=== PATIENT | male | born 1955 | race Caucasian/White ===

== ENCOUNTER → 2017-01-15 | Outpatient (REF) | payer MEDICARE ==
[2017-01-15 11:40] LABS: MEAN CORPUSCULAR HEMOGLOBIN 29.8 pg (27.0-33.0); MEAN CORPUSCULAR HGB CONC 34.2 g/dl (32.0-36.5); MEAN CORPUSCULAR VOLUME 87.3 fl (80.0-96.0); RED CELL DISTRIBUTION WIDTH 13.4 % (11.5-14.5); WHITE BLOOD COUNT 6.9 K/mm3 (4.0-10.0)
[2017-01-15 11:54] LABS: ALBUMIN 3.9 GM/DL (3.2-5.2); ALBUMIN/GLOBULIN RATIO 1.34 (1.00-1.93); ALKALINE PHOSPHATASE 63 U/L (45-117); ALT/SGPT 37 U/L (12-78); ANION GAP 6 MEQ/L (8-16); AST/SGOT 17 U/L (15-37); BILIRUBIN,TOTAL 0.5 MG/DL (0.2-1.0); BLOOD UREA NITROGEN 22 MG/DL (7-18); CALCIUM LEVEL 8.8 MG/DL (8.8-10.2); CARBON DIOXIDE LEVEL 30 MEQ/L (21-32); CHLORIDE LEVEL 107 MEQ/L (98-107); CHOLESTEROL LEVEL 143 MG/DL (<200); CREATININE FOR GFR 1.28 MG/DL (0.70-1.30); FREE T4 1.15 NG/DL (0.76-1.46); GLOMERULAR FILTRATION RATE > 60.0 (>49); GLUCOSE, FASTING 124 MG/DL (80-110); POTASSIUM SERUM 4.1 MEQ/L (3.5-5.1); SODIUM LEVEL 143 MEQ/L (136-145); TOTAL PROTEIN 6.8 GM/DL (6.4-8.2); TRIGLYCERIDES LEVEL 87 MG/DL (<150)
== END ==
LOC: M SFHCADAM 09:39
PROVIDERS: ATTEND Physician Assistant
DX: I80.13 Phlebitis and thrombophlebitis of femoral vein, bilateral (principal); R73.01 Impaired fasting glucose; I10 Essential (primary) hypertension; E78.5 Hyperlipidemia, unspecified; E55.9 Vitamin D deficiency, unspecified

== ENCOUNTER → 2017-02-14 | Outpatient (REF) | payer MEDICARE ==
[2017-02-14 19:41] LABS: CALCIUM LEVEL 9.1 MG/DL (8.8-10.2); CREATININE FOR GFR 1.84 MG/DL (0.70-1.30); GLOMERULAR FILTRATION RATE 39.6 (>49); POTASSIUM SERUM 4.4 MEQ/L (3.5-5.1)
== END ==
LOC: M SFHCADAM 10:13
PROVIDERS: ATTEND Physician Assistant
DX: R73.01 Impaired fasting glucose (principal); I10 Essential (primary) hypertension

== ENCOUNTER → 2017-02-26 | Outpatient (REF) | payer MEDICARE ==
[2017-02-26 12:46] LABS: ANION GAP 8 MEQ/L (8-16); BLOOD UREA NITROGEN 21 MG/DL (7-18); CALCIUM LEVEL 8.7 MG/DL (8.8-10.2); CARBON DIOXIDE LEVEL 26 MEQ/L (21-32); CHLORIDE LEVEL 106 MEQ/L (98-107); CREATININE FOR GFR 0.99 MG/DL (0.70-1.30); GLOMERULAR FILTRATION RATE > 60.0 (>49); GLUCOSE, FASTING 104 MG/DL (80-110); SODIUM LEVEL 140 MEQ/L (136-145)
== END ==
LOC: M SFHCADAM 09:00
PROVIDERS: ATTEND Physician Assistant
DX: N17.9 Acute kidney failure, unspecified (principal)

== ENCOUNTER → 2017-07-18 | Outpatient (REF) | payer MEDICARE | LOC: M SFHCADAM 10:14 | PROVIDERS: ATTEND Physician Assistant | DX: R73.01 Impaired fasting glucose (principal); I10 Essential (primary) hypertension; Z53.9 Procedure and treatment not carried out, unspecified reason ==

== ENCOUNTER → 2017-07-23 | Outpatient (CLI) | payer MEDICARE ==
--- NOTE | 2017-07-23 15:58 | REP ---
LEFT SHOULDER: Three views of the left shoulder are performed. There is no acute fracture or dislocation. There is mild narrowing of the acromioclavicular joint. The acromion is downward sloping. There is high riding of the humerus with decreased subacromial space, likely representing a rotator cuff tear. IMPRESSION: Degenerative changes acromioclavicular joint with downward sloping of the acromion. High riding humerus with decreased subacromial space, likely representing a rotator cuff tear. Further evaluation may be made with MRI. Signed by James Mercedes MD 07/23/2017 07:47 P
--- NOTE | 2017-07-23 16:01 | REP ---
LEFT HUMERUS: AP and lateral views of the left humerus are performed. There is no acute fracture or dislocation. There are degenerative changes at the acromioclavicular joint with decreased subacromial space suspicious for a rotator cuff tear. IMPRESSION: No fracture or dislocation. High riding humerus with decreased subacromial space suspicious for rotator cuff tear. Signed by James Mercedes MD 07/23/2017 07:47 P
== END ==
LOC: M ADAMS 15:04
PROVIDERS: ATTEND Physician Assistant
DX: M19.012 Primary osteoarthritis, left shoulder (principal); G89.29 Other chronic pain
CPT/HCPCS: 73030; 73060; G0463

== ENCOUNTER → 2018-07-03 | Outpatient (REF) | payer MEDICARE ==
[2018-07-03 13:45] LABS: ALBUMIN 4.3 GM/DL (3.2-5.2); ALBUMIN/GLOBULIN RATIO 1.65 (1.00-1.93); ALKALINE PHOSPHATASE 55 U/L (45-117); ALT/SGPT 34 U/L (12-78); ANION GAP 8 MEQ/L (8-16); AST/SGOT 17 U/L (7-37); BILIRUBIN,TOTAL 0.9 MG/DL (0.2-1.0); BLOOD UREA NITROGEN 22 MG/DL (7-18); CALCIUM LEVEL 8.9 MG/DL (8.8-10.2); CARBON DIOXIDE LEVEL 28 MEQ/L (21-32); CHLORIDE LEVEL 106 MEQ/L (98-107); CREATININE FOR GFR 1.26 MG/DL (0.70-1.30); GLOMERULAR FILTRATION RATE > 60.0 (>49); GLUCOSE, FASTING 98 MG/DL (70-100); POTASSIUM SERUM 4.3 MEQ/L (3.5-5.1); SODIUM LEVEL 142 MEQ/L (136-145); TOTAL PROTEIN 6.9 GM/DL (6.4-8.2)
[2018-07-03 14:08] LABS: ESTIMATED AVERAGE GLUCOSE 120 MG/DL (60-110); HEMOGLOBIN A1c 5.8 %
[2018-07-03 23:00] LABS: HEMATOCRIT 44.5 % (42.0-52.0); HEMOGLOBIN 14.9 g/dl (13.5-17.5); MEAN CORPUSCULAR HEMOGLOBIN 29.6 pg (27.0-33.0); MEAN CORPUSCULAR HGB CONC 33.5 g/dl (32.0-36.5); MEAN CORPUSCULAR VOLUME 88.3 fl (80.0-96.0); PLATELET COUNT, AUTOMATED 250 10^3/uL (150-450); RED BLOOD COUNT 5.04 10^6/uL (4.30-6.10); RED CELL DISTRIBUTION WIDTH 13.8 % (11.5-14.5); WHITE BLOOD COUNT 7.1 10^3/uL (4.0-10.0)
== END ==
LOC: M SFHCADAM 10:10
DX: I80.13 Phlebitis and thrombophlebitis of femoral vein, bilateral (principal); R73.01 Impaired fasting glucose; I10 Essential (primary) hypertension; E78.5 Hyperlipidemia, unspecified
CPT/HCPCS: 80053

== ENCOUNTER → 2019-01-07 | Outpatient (REF) | payer MEDICARE ==
[2019-01-07 15:35] LABS: ALT/SGPT 30 U/L (12-78); BILIRUBIN,TOTAL 0.9 MG/DL (0.2-1.0); BLOOD UREA NITROGEN 24 MG/DL (7-18); CALCIUM LEVEL 8.8 MG/DL (8.8-10.2); CARBON DIOXIDE LEVEL 30 MEQ/L (21-32); CHLORIDE LEVEL 107 MEQ/L (98-107); CHOLESTEROL LEVEL 140 MG/DL (<200); CREATININE FOR GFR 1.25 MG/DL (0.70-1.30); GLOMERULAR FILTRATION RATE > 60.0 (>49); GLUCOSE, FASTING 124 MG/DL (70-100); SODIUM LEVEL 141 MEQ/L (136-145); TRIGLYCERIDES LEVEL 105 MG/DL (<150)
[2019-01-07 15:36] LABS: ALBUMIN 3.9 GM/DL (3.2-5.2); CHOLESTEROL RISK RATIO 3.111 (<5); HDL CHOLESTEROL 45 MG/DL (>40); LDL CHOLESTEROL 74 MG/DL (<100); NON-HDL-C 95 MG/DL; TOTAL PROTEIN 6.6 GM/DL (6.4-8.2)
[2019-01-07 16:00] LABS: HEMATOCRIT 42.5 % (42.0-52.0); HEMOGLOBIN 14.3 g/dl (13.5-17.5); MEAN CORPUSCULAR HEMOGLOBIN 29.8 pg (27.0-33.0); MEAN CORPUSCULAR HGB CONC 33.6 g/dl (32.0-36.5); MEAN CORPUSCULAR VOLUME 88.5 fl (80.0-96.0); PLATELET COUNT, AUTOMATED 235 10^3/uL (150-450); WHITE BLOOD COUNT 7.3 10^3/uL (4.0-10.0)
== END ==
LOC: M SFHCADAM 11:33
PROVIDERS: ATTEND Physician Assistant
DX: E78.5 Hyperlipidemia, unspecified (principal); I80.13 Phlebitis and thrombophlebitis of femoral vein, bilateral; R73.01 Impaired fasting glucose

== ENCOUNTER → 2019-06-23 | Outpatient (REF) | payer MEDICARE ==
[2019-06-23 12:59] LABS: CALCIUM LEVEL 8.9 MG/DL (8.8-10.2); CREATININE FOR GFR 1.37 MG/DL (0.70-1.30); GLOMERULAR FILTRATION RATE 55.3 (>49); POTASSIUM SERUM 5.1 MEQ/L (3.5-5.1)
[2019-06-23 13:33] LABS: HEMOGLOBIN A1c 5.9 %
== END ==
LOC: M SFHCADAM 08:19
PROVIDERS: ATTEND Family Medicine
DX: R25.1 Tremor, unspecified (principal); I10 Essential (primary) hypertension

== ENCOUNTER → 2019-12-13 | Outpatient (REF) | payer MEDICARE ==
[2019-12-13 12:52] LABS: HEMATOCRIT 43.5 % (42.0-52.0); HEMOGLOBIN 14.6 g/dl (13.5-17.5); MEAN CORPUSCULAR HEMOGLOBIN 29.5 pg (27.0-33.0); MEAN CORPUSCULAR HGB CONC 33.6 g/dl (32.0-36.5); MEAN CORPUSCULAR VOLUME 87.9 fl (80.0-96.0); PLATELET COUNT, AUTOMATED 249 10^3/uL (150-450); RED BLOOD COUNT 4.95 10^6/uL (4.30-6.10); WHITE BLOOD COUNT 6.6 10^3/uL (4.0-10.0)
[2019-12-13 13:18] LABS: HEMOGLOBIN A1c 6.2 %
[2019-12-13 13:22] LABS: ALBUMIN 3.9 GM/DL (3.2-5.2); ALT/SGPT 11 U/L (12-78); BILIRUBIN,TOTAL 0.9 MG/DL (0.2-1.0); BLOOD UREA NITROGEN 20 MG/DL (7-18); CALCIUM LEVEL 8.9 MG/DL (8.8-10.2); CARBON DIOXIDE LEVEL 29 MEQ/L (21-32); CHLORIDE LEVEL 106 MEQ/L (98-107); CHOLESTEROL LEVEL 123 MG/DL (<200); CREATININE FOR GFR 1.21 MG/DL (0.70-1.30); GLOMERULAR FILTRATION RATE > 60.0 (>49); GLUCOSE, FASTING 108 MG/DL (70-100); HDL CHOLESTEROL 41 MG/DL (>40); LDL CHOLESTEROL 63 MG/DL (<100); NON-HDL-C 82 MG/DL; POTASSIUM SERUM 4.6 MEQ/L (3.5-5.1); SODIUM LEVEL 141 MEQ/L (136-145); TOTAL PROTEIN 6.8 GM/DL (6.4-8.2); TRIGLYCERIDES LEVEL 97 MG/DL (<150)
== END ==
LOC: M SFHCADAM 10:55
PROVIDERS: ATTEND Family Medicine
DX: Z12.5 Encounter for screening for malignant neoplasm of prostate (principal); I80.13 Phlebitis and thrombophlebitis of femoral vein, bilateral; I10 Essential (primary) hypertension; R73.01 Impaired fasting glucose; E78.5 Hyperlipidemia, unspecified
CPT/HCPCS: 80053; 80061; 83036; 85027; G0103

== ENCOUNTER → 2019-12-23 | Outpatient (REF) | payer MEDICARE ==
[2019-12-25 14:07] LABS: PSA % FREE 20.8 % (.); PSA FREE 1.91 ng/mL; PSA TOTAL 9.2 ng/mL (0.0-4.0)
== END ==
LOC: M LABSMT 15:33
PROVIDERS: ATTEND Urology
DX: R97.20 Elevated prostate specific antigen [PSA] (principal); Z79.899 Other long term (current) drug therapy
CPT/HCPCS: 51798; 81002; 84154; 87086; G0463

== ENCOUNTER → 2020-03-24 | Outpatient (REF) | payer MEDICARE ==
[2020-03-24 14:18] LABS: HEMATOCRIT 43.9 % (42.0-52.0); HEMOGLOBIN 14.5 g/dl (13.5-17.5); MEAN CORPUSCULAR HEMOGLOBIN 29.2 pg (27.0-33.0); MEAN CORPUSCULAR VOLUME 88.3 fl (80.0-96.0); PLATELET COUNT, AUTOMATED 244 10^3/uL (150-450); RED BLOOD COUNT 4.97 10^6/uL (4.30-6.10); WHITE BLOOD COUNT 6.9 10^3/uL (4.0-10.0)
[2020-03-25 21:07] LABS: PSA % FREE 22.3 % (.); PSA FREE 1.76 ng/mL; PSA TOTAL 7.9 ng/mL (0.0-4.0)
== END ==
LOC: M SFHCADAM 10:16
PROVIDERS: ATTEND Nurse Practitioner Women's Health
DX: I10 Essential (primary) hypertension (principal); E78.5 Hyperlipidemia, unspecified; R73.01 Impaired fasting glucose; I80.13 Phlebitis and thrombophlebitis of femoral vein, bilateral; R97.20 Elevated prostate specific antigen [PSA]

== ENCOUNTER → 2020-07-18 | Outpatient (CLI) | payer SELFPAY | LOC: M LABSMTC 13:01 | PROVIDERS: ATTEND Pediatrics | DX: Z20.828 Contact with and (suspected) exposure to other viral communicable diseases (principal) ==

== ENCOUNTER → 2021-01-09 | Outpatient (REF) | payer MEDICARE ==
[2021-01-09 18:25] LABS: HEMATOCRIT 44.7 % (42.0-52.0); HEMOGLOBIN 14.7 g/dl (13.5-17.5); MEAN CORPUSCULAR HEMOGLOBIN 29.6 pg (27.0-33.0); MEAN CORPUSCULAR HGB CONC 32.9 g/dl (32.0-36.5); MEAN CORPUSCULAR VOLUME 90.1 fl (80.0-96.0); PLATELET COUNT, AUTOMATED 252 10^3/uL (150-450); RED BLOOD COUNT 4.96 10^6/uL (4.30-6.10); WHITE BLOOD COUNT 7.9 10^3/uL (4.0-10.0)
[2021-01-09 18:42] LABS: ALT/SGPT 16 U/L (12-78); BILIRUBIN,TOTAL 0.9 MG/DL (0.2-1.0); BLOOD UREA NITROGEN 19 MG/DL (7-18); CALCIUM LEVEL 9.8 MG/DL (8.8-10.2); CARBON DIOXIDE LEVEL 30 MEQ/L (21-32); CHLORIDE LEVEL 106 MEQ/L (98-107); CHOLESTEROL LEVEL 135 MG/DL (<200); CHOLESTEROL RISK RATIO 3.552 (<5); CREATININE FOR GFR 1.13 MG/DL (0.70-1.30); FREE T4 1.08 NG/DL (0.76-1.46); GLOMERULAR FILTRATION RATE > 60.0 (>49); GLUCOSE, FASTING 90 MG/DL (70-100); HDL CHOLESTEROL 38 MG/DL (>40); LDL CHOLESTEROL 63 MG/DL (<100); NON-HDL-C 97 MG/DL; PROSTATIC SPECIFIC AG MONITOR 6.79 NG/ML (< 4.00); SODIUM LEVEL 139 MEQ/L (136-145); THYROID STIMULATING HORMONE 0.473 uIU/ML (0.358-3.740); TOTAL PROTEIN 6.9 GM/DL (6.4-8.2); TRIGLYCERIDES LEVEL 168 MG/DL (<150)
[2021-01-09 19:18] LABS: HEMOGLOBIN A1c 5.9 %
== END ==
LOC: M SFHCADAM 12:00
PROVIDERS: ATTEND Family Medicine
DX: I80.13 Phlebitis and thrombophlebitis of femoral vein, bilateral (principal); I10 Essential (primary) hypertension; E78.5 Hyperlipidemia, unspecified; R73.01 Impaired fasting glucose; R97.20 Elevated prostate specific antigen [PSA]; R41.3 Other amnesia
CPT/HCPCS: 80053; 80061; 83036; 84153; 84439; 84443; 85027; 99497; G0463

== ENCOUNTER → 2021-04-16 | Outpatient (CLI) | payer SELFPAY | LOC: M LABSMTC 11:21 | PROVIDERS: ATTEND Pediatrics | DX: Z20.822 Contact with and (suspected) exposure to COVID-19 (principal) ==

== ENCOUNTER → 2021-04-23 | Outpatient (REF) | payer MEDICARE | PROVIDERS: ATTEND Nurse Practitioner Women's Health | DX: R97.20 Elevated prostate specific antigen [PSA] (principal) ==

== ENCOUNTER → 2021-09-20 | Outpatient (REF) | payer MEDICARE, MEDICAID ==
[2021-09-20 14:56] LABS: HEMATOCRIT 42.2 % (42.0-52.0); HEMOGLOBIN 14.4 g/dl (13.5-17.5); MEAN CORPUSCULAR HEMOGLOBIN 29.9 pg (27.0-33.0); MEAN CORPUSCULAR HGB CONC 34.1 g/dl (32.0-36.5); MEAN CORPUSCULAR VOLUME 87.7 fl (80.0-96.0); PLATELET COUNT, AUTOMATED 274 10^3/uL (150-450); RED BLOOD COUNT 4.81 10^6/uL (4.30-6.10); WHITE BLOOD COUNT 8.3 10^3/uL (4.0-10.0)
[2021-09-20 15:15] LABS: ALBUMIN 3.8 GM/DL (3.2-5.2); ALT/SGPT 16 U/L (12-78); BILIRUBIN,TOTAL 0.7 MG/DL (0.2-1.0); BLOOD UREA NITROGEN 16 MG/DL (7-18); CALCIUM LEVEL 8.9 MG/DL (8.8-10.2); CARBON DIOXIDE LEVEL 29 MEQ/L (21-32); CHLORIDE LEVEL 105 MEQ/L (98-107); CHOLESTEROL LEVEL 125 MG/DL (<200); CHOLESTEROL RISK RATIO 3.048 (<5); CREATININE FOR GFR 1.04 MG/DL (0.70-1.30); GLOMERULAR FILTRATION RATE > 60.0 (>49); GLUCOSE, FASTING 104 MG/DL (70-100); HDL CHOLESTEROL 41 MG/DL (>40); LDL CHOLESTEROL 45 MG/DL (<100); NON-HDL-C 84 MG/DL; POTASSIUM SERUM 4.1 MEQ/L (3.5-5.1); PROSTATIC SPECIFIC AG MONITOR 5.31 NG/ML (< 4.00); SODIUM LEVEL 139 MEQ/L (136-145); TOTAL PROTEIN 6.7 GM/DL (6.4-8.2); TRIGLYCERIDES LEVEL 195 MG/DL (<150)
== END ==
LOC: M SFHCADAM 12:02
PROVIDERS: ATTEND Family Medicine
DX: I80.13 Phlebitis and thrombophlebitis of femoral vein, bilateral (principal); I10 Essential (primary) hypertension; E78.5 Hyperlipidemia, unspecified; R73.01 Impaired fasting glucose; R97.20 Elevated prostate specific antigen [PSA]
CPT/HCPCS: 80053; 80061; 83036; 84153; 85027; G0463

== ENCOUNTER → 2021-10-24 | Outpatient (REF) | payer MEDICARE, MEDICAID | PROVIDERS: ATTEND Nurse Practitioner Women's Health | DX: R97.20 Elevated prostate specific antigen [PSA] (principal) ==

== ENCOUNTER → 2022-03-28 | Outpatient (REF) | payer MEDICARE, MEDICAID ==
[2022-03-28 13:54] LABS: HEMATOCRIT 44.1 % (42.0-52.0); HEMOGLOBIN 14.9 g/dl (13.5-17.5); MEAN CORPUSCULAR HEMOGLOBIN 29.7 pg (27.0-33.0); MEAN CORPUSCULAR HGB CONC 33.8 g/dl (32.0-36.5); PLATELET COUNT, AUTOMATED 261 10^3/uL (150-450); RED BLOOD COUNT 5.01 10^6/uL (4.30-6.10); WHITE BLOOD COUNT 7.7 10^3/uL (4.0-10.0)
[2022-03-28 14:38] LABS: ALBUMIN 4.2 GM/DL (3.2-5.2); ALT/SGPT 19 U/L (12-78); BLOOD UREA NITROGEN 17 MG/DL (7-18); CALCIUM LEVEL 9.4 MG/DL (8.8-10.2); CARBON DIOXIDE LEVEL 29 MEQ/L (21-32); CHLORIDE LEVEL 105 MEQ/L (98-107); CHOLESTEROL LEVEL 140 MG/DL (<200); CHOLESTEROL RISK RATIO 3.684 (<5); CREATININE FOR GFR 1.19 MG/DL (0.70-1.30); FREE T4 1.16 NG/DL (0.76-1.46); GLOMERULAR FILTRATION RATE > 60.0 (>49); GLUCOSE, FASTING 104 MG/DL (70-100); HDL CHOLESTEROL 38 MG/DL (>40); LDL CHOLESTEROL 54 MG/DL (<100); NON-HDL-C 102 MG/DL; POTASSIUM SERUM 3.9 MEQ/L (3.5-5.1); SODIUM LEVEL 138 MEQ/L (136-145); THYROID STIMULATING HORMONE 0.591 uIU/ML (0.358-3.740); TOTAL PROTEIN 6.7 GM/DL (6.4-8.2); TRIGLYCERIDES LEVEL 238 MG/DL (<150)
[2022-03-28 14:42] LABS: HEMOGLOBIN A1c 6.1 %
== END ==
LOC: M SFHCADAM 10:54
PROVIDERS: ATTEND Family Medicine
DX: E78.5 Hyperlipidemia, unspecified (principal); I10 Essential (primary) hypertension; R73.01 Impaired fasting glucose; I80.13 Phlebitis and thrombophlebitis of femoral vein, bilateral

== ENCOUNTER → 2022-05-01 | Outpatient (REF) | payer MEDICARE, MEDICAID | PROVIDERS: ATTEND Nurse Practitioner Women's Health | DX: R97.20 Elevated prostate specific antigen [PSA] (principal) ==

== ENCOUNTER → 2022-10-30 | Outpatient (REF) | payer MEDICARE, MEDICAID | PROVIDERS: ATTEND Nurse Practitioner Women's Health | DX: R97.20 Elevated prostate specific antigen [PSA] (principal) ==

== ENCOUNTER → 2023-03-18 | Outpatient (REF) | payer MEDICARE, MEDICAID | LOC: M SFHCADAM 15:26 | PROVIDERS: ATTEND Physician Assistant | DX: R60.0 Localized edema (principal); I87.2 Venous insufficiency (chronic) (peripheral); I10 Essential (primary) hypertension; E78.5 Hyperlipidemia, unspecified; R73.01 Impaired fasting glucose; E55.9 Vitamin D deficiency, unspecified ==

== ENCOUNTER → 2023-03-19 | Outpatient (REF) | payer MEDICARE, MEDICAID ==
[2023-03-19 09:55] LABS: FREE T4 1.13 NG/DL (0.89-1.76); THYROID STIMULATING HORMONE 0.727 uIU/ML (0.55-4.78); THYROXINE (T4) 8.2 UG/DL (4.5-10.9)
[2023-03-19 09:56] LABS: ALBUMIN 3.8 G/DL (3.2-5.2); ALKALINE PHOSPHATASE 64 U/L (46-116); ALT/SGPT 25 U/L (7.0-40); AST/SGOT 19 U/L (<34); BLOOD UREA NITROGEN 15 MG/DL (9-23); CALCIUM LEVEL 8.6 MG/DL (8.3-10.6); CARBON DIOXIDE LEVEL 27 MMOL/L (20-31); CHLORIDE LEVEL 103 MMOL/L (98-107); CHOLESTEROL LEVEL 120 MG/DL (<200); CHOLESTEROL RISK RATIO 3.26 (<5); CREATININE FOR GFR 1.05 MG/DL (0.70-1.30); GLOMERULAR FILTRATION RATE > 60.0 (>42); GLUCOSE, FASTING 126 MG/DL (74-106); HDL CHOLESTEROL 36.8 MG/DL (>40); LDL CHOLESTEROL 60.2 MG/DL (<100); NON-HDL-C 83.2 MG/DL; POTASSIUM SERUM 3.8 MMOL/L (3.5-5.1); SODIUM LEVEL 139 MMOL/L (136-145); TOTAL PROTEIN 6.4 G/DL (5.7-8.2); TRIGLYCERIDES LEVEL 115 MG/DL (<150)
[2023-03-19 09:57] LABS: FOLATE 22.6 NG/ML (>5.4)
[2023-03-19 09:58] LABS: VITAMIN B12 LEVEL 268 PG/ML (211-911)
[2023-03-19 10:20] LABS: HEMOGLOBIN A1c 6.4 % (4.0-6.0)
== END ==
PROVIDERS: ATTEND Physician Assistant
DX: I10 Essential (primary) hypertension (principal); Z87.820 Personal history of traumatic brain injury; I87.2 Venous insufficiency (chronic) (peripheral); Z79.01 Long term (current) use of anticoagulants; Z79.899 Other long term (current) drug therapy

== ENCOUNTER → 2023-03-27 | Outpatient (REF) | payer MEDICARE, MEDICAID | LOC: M SFHCADAM 12:42 | PROVIDERS: ATTEND Family Medicine | DX: L97.919 Non-pressure chronic ulcer of unspecified part of right lower leg with unspecified severity (principal) ==

== ENCOUNTER → 2023-04-30 | Outpatient (REF) | payer MEDICARE, MEDICAID | PROVIDERS: ATTEND Nurse Practitioner Women's Health | DX: R97.20 Elevated prostate specific antigen [PSA] (principal) ==

== ENCOUNTER → 2023-06-04 | Outpatient (REF) | payer MEDICARE, MEDICAID | PROVIDERS: ATTEND Surgery | DX: T78.49XA Other allergy, initial encounter (principal) ==

== ENCOUNTER → 2023-07-07 | Outpatient (REF) | payer MEDICARE, MEDICAID ==
[2023-07-07 16:47] LABS: APPEARANCE, URINE CLEAR (CLEAR); BACTERIA, URINE AUTO NEGATIVE (NEGATIVE); BILIRUBIN, URINE AUTO NEGATIVE (NEGATIVE); BLOOD, URINE BLOOD NEGATIVE (NEGATIVE); CALCIUM OXALATE CRYSTALS MODERATE; COLOR, URINE YELLOW (YELLOW); GLUCOSE, URINE (UA) AUTO NEGATIVE (NEGATIVE); KETONE, URINE AUTO TRACE mg/dL (NEGATIVE); LEUKOCYTE ESTERASE, URINE AUTO NEGATIVE (NEGATIVE); NITRITE, URINE AUTO NEGATIVE (NEGATIVE); PROTEIN, URINE AUTO NEGATIVE (NEGATIVE); RBC, URINE AUTO 0 /HPF (0-3); SPECIFIC GRAVITY URINE AUTO 1.014 (1.002-1.035); SQUAMOUS EPITHELIAL CELL UR AU 0 /HPF (0-6); WBC, URINE AUTO 0 /HPF (0-3)
== END ==
LOC: M LAB REF 15:45
PROVIDERS: ATTEND Physician Assistant
DX: R39.9 Unspecified symptoms and signs involving the genitourinary system (principal)

== ENCOUNTER → 2023-07-16 | Outpatient (REF) | payer MEDICARE, MEDICAID | LOC: M SFHCADAM 15:16 | PROVIDERS: ATTEND Physician Assistant | DX: R39.9 Unspecified symptoms and signs involving the genitourinary system (principal) ==

== ENCOUNTER → 2023-08-01 | Outpatient (REF) ==
[2023-08-01 10:00] LABS: HEMOGLOBIN 14.7 g/dl (13.5-17.5); MEAN CORPUSCULAR HEMOGLOBIN 29.1 pg (27.0-33.0); MEAN CORPUSCULAR HGB CONC 33.4 g/dl (32.0-36.5); PLATELET COUNT, AUTOMATED 249 10^3/uL (150-450); RED BLOOD COUNT 5.06 10^6/uL (4.30-6.10); WHITE BLOOD COUNT 6.8 10^3/uL (4.0-10.0)
[2023-08-01 10:18] LABS: HEMOGLOBIN A1c 6.4 % (4.0-6.0)
[2023-08-01 10:55] LABS: ALBUMIN 3.7 G/DL (3.2-5.2); ALKALINE PHOSPHATASE 63 U/L (46-116); ALT/SGPT 28 U/L (7.0-40); AST/SGOT 17 U/L (<34); BILIRUBIN,DIRECT 0.4 MG/DL (<0.4); BLOOD UREA NITROGEN 17 MG/DL (9-23); CARBON DIOXIDE LEVEL 29 MMOL/L (20-31); CHLORIDE LEVEL 103 MMOL/L (98-107); CREATININE FOR GFR 0.99 MG/DL (0.70-1.30); GLOMERULAR FILTRATION RATE > 60.0 (>42); GLUCOSE, FASTING 153 MG/DL (74-106); POTASSIUM SERUM 4.3 MMOL/L (3.5-5.1); SODIUM LEVEL 138 MMOL/L (136-145); THYROID STIMULATING HORMONE 0.971 uIU/ML (0.55-4.78); THYROXINE (T4) 9.8 UG/DL (4.5-10.9); TOTAL 25(OH) VITAMIN D 60.4 NG/ML (20.0-100.0); TOTAL PROTEIN 6.6 G/DL (5.7-8.2); VITAMIN B12 LEVEL 325 PG/ML (211-911)
== END ==
PROVIDERS: ATTEND Internal Medicine
DX: I10 Essential (primary) hypertension (principal)

== ENCOUNTER → 2023-08-04 | Outpatient (REF) ==
[2023-08-04 11:52] LABS: BLOOD UREA NITROGEN 18 MG/DL (9-23); CALCIUM LEVEL 8.6 MG/DL (8.3-10.6); CARBON DIOXIDE LEVEL 29 MMOL/L (20-31); CHLORIDE LEVEL 102 MMOL/L (98-107); CREATININE FOR GFR 1.09 MG/DL (0.70-1.30); GLOMERULAR FILTRATION RATE > 60.0 (>42); GLUCOSE, FASTING 121 MG/DL (74-106); SODIUM LEVEL 139 MMOL/L (136-145)
== END ==
PROVIDERS: ATTEND Physician Assistant
DX: E11.9 Type 2 diabetes mellitus without complications (principal)

== ENCOUNTER → 2023-08-06 | Outpatient (REF) ==
[2023-08-06 11:20] LABS: HEMATOCRIT 42.7 % (42.0-52.0); HEMOGLOBIN 14.3 g/dl (13.5-17.5); MEAN CORPUSCULAR HEMOGLOBIN 29.5 pg (27.0-33.0); MEAN CORPUSCULAR HGB CONC 33.5 g/dl (32.0-36.5); PLATELET COUNT, AUTOMATED 270 10^3/uL (150-450); RED BLOOD COUNT 4.85 10^6/uL (4.30-6.10); WHITE BLOOD COUNT 7.9 10^3/uL (4.0-10.0)
[2023-08-06 11:50] LABS: BLOOD UREA NITROGEN 18 MG/DL (9-23); CALCIUM LEVEL 9.3 MG/DL (8.3-10.6); CARBON DIOXIDE LEVEL 28 MMOL/L (20-31); CHLORIDE LEVEL 102 MMOL/L (98-107); CREATININE FOR GFR 0.96 MG/DL (0.70-1.30); GLOMERULAR FILTRATION RATE > 60.0 (>42); GLUCOSE, FASTING 90 MG/DL (74-106); POTASSIUM SERUM 4.1 MMOL/L (3.5-5.1); SODIUM LEVEL 139 MMOL/L (136-145)
== END ==
PROVIDERS: ATTEND Internal Medicine
DX: I10 Essential (primary) hypertension (principal)

== ENCOUNTER → 2023-08-11 | Outpatient (REF) ==
[2023-08-11 12:09] LABS: BLOOD UREA NITROGEN 15 MG/DL (9-23); CALCIUM LEVEL 9.2 MG/DL (8.3-10.6); CARBON DIOXIDE LEVEL 29 MMOL/L (20-31); CHLORIDE LEVEL 104 MMOL/L (98-107); CREATININE FOR GFR 1.08 MG/DL (0.70-1.30); GLOMERULAR FILTRATION RATE > 60.0 (>42); GLUCOSE, FASTING 95 MG/DL (74-106); POTASSIUM SERUM 4.4 MMOL/L (3.5-5.1); SODIUM LEVEL 141 MMOL/L (136-145)
== END ==
PROVIDERS: ATTEND Physician Assistant
DX: E11.9 Type 2 diabetes mellitus without complications (principal)

== ENCOUNTER → 2023-08-18 | Outpatient (REF) ==
[2023-08-18 11:56] LABS: BLOOD UREA NITROGEN 17 MG/DL (9-23); CALCIUM LEVEL 8.7 MG/DL (8.3-10.6); CARBON DIOXIDE LEVEL 25 MMOL/L (20-31); CHLORIDE LEVEL 103 MMOL/L (98-107); CREATININE FOR GFR 0.97 MG/DL (0.70-1.30); GLOMERULAR FILTRATION RATE > 60.0 (>42); GLUCOSE, FASTING 148 MG/DL (74-106); POTASSIUM SERUM 3.7 MMOL/L (3.5-5.1); SODIUM LEVEL 137 MMOL/L (136-145)
== END ==
PROVIDERS: ATTEND Physician Assistant
DX: E11.9 Type 2 diabetes mellitus without complications (principal)

== ENCOUNTER → 2023-10-15 | Outpatient (REF) | payer MEDICARE, MEDICAID, SELFPAY ==
[2023-10-15 11:24] LABS: HEMATOCRIT 43.6 % (42.0-52.0); HEMOGLOBIN 14.5 g/dl (13.5-17.5); MEAN CORPUSCULAR HEMOGLOBIN 29.6 pg (27.0-33.0); MEAN CORPUSCULAR HGB CONC 33.3 g/dl (32.0-36.5); PLATELET COUNT, AUTOMATED 269 10^3/uL (150-450); WHITE BLOOD COUNT 7.5 10^3/uL (4.0-10.0)
[2023-10-15 11:38] LABS: BLOOD UREA NITROGEN 22 MG/DL (9-23); CARBON DIOXIDE LEVEL 28 MMOL/L (20-31); CHLORIDE LEVEL 105 MMOL/L (98-107); CREATININE FOR GFR 1.01 MG/DL (0.70-1.30); GLOMERULAR FILTRATION RATE > 60.0 (>42); GLUCOSE, FASTING 151 MG/DL (74-106); POTASSIUM SERUM 3.9 MMOL/L (3.5-5.1); SODIUM LEVEL 137 MMOL/L (136-145)
== END ==
PROVIDERS: ATTEND Internal Medicine
DX: S06.9X0A Unspecified intracranial injury without loss of consciousness, initial encounter (principal)

== ENCOUNTER → 2024-01-14 | Outpatient (REF) | payer MEDICARE, MEDICAID, SELFPAY ==
[2024-01-14 12:07] LABS: HEMATOCRIT 43.1 % (42.0-52.0); HEMOGLOBIN 14.2 g/dl (13.5-17.5); MEAN CORPUSCULAR HEMOGLOBIN 28.5 pg (27.0-33.0); MEAN CORPUSCULAR HGB CONC 32.9 g/dl (32.0-36.5); MEAN CORPUSCULAR VOLUME 86.4 fl (80.0-96.0); PLATELET COUNT, AUTOMATED 280 10^3/uL (150-450); RED BLOOD COUNT 4.99 10^6/uL (4.30-6.10); WHITE BLOOD COUNT 10.2 10^3/uL (4.0-10.0)
[2024-01-14 12:42] LABS: ALBUMIN 3.4 G/DL (3.2-5.2); ALKALINE PHOSPHATASE 59 U/L (46-116); ALT/SGPT 22 U/L (7.0-40); AST/SGOT 19 U/L (<34); BILIRUBIN,DIRECT 0.3 MG/DL (<0.4); BLOOD UREA NITROGEN 21 MG/DL (9-23); CALCIUM LEVEL 8.9 MG/DL (8.3-10.6); CARBON DIOXIDE LEVEL 28 MMOL/L (20-31); CHLORIDE LEVEL 104 MMOL/L (98-107); GLOMERULAR FILTRATION RATE > 60.0 (>42); GLUCOSE, FASTING 127 MG/DL (74-106); POTASSIUM SERUM 4.1 MMOL/L (3.5-5.1); SODIUM LEVEL 139 MMOL/L (136-145); THYROXINE (T4) 9.1 UG/DL (4.5-10.9); TOTAL 25(OH) VITAMIN D 55.6 NG/ML (20.0-100.0); TOTAL PROTEIN 6.6 G/DL (5.7-8.2)
[2024-01-14 12:43] LABS: VITAMIN B12 LEVEL 327 PG/ML (211-911)
[2024-01-14 13:18] LABS: HEMOGLOBIN A1c 6.1 % (4.0-6.0)
== END ==
PROVIDERS: ATTEND Internal Medicine
DX: E03.9 Hypothyroidism, unspecified (principal); Z79.899 Other long term (current) drug therapy

== ENCOUNTER → 2024-02-24 | Outpatient (REF) | payer MEDICARE, MEDICAID, SELFPAY ==
[2024-02-24 17:39] LABS: HEMATOCRIT 43.1 % (42.0-52.0); MEAN CORPUSCULAR HEMOGLOBIN 27.9 pg (27.0-33.0); MEAN CORPUSCULAR HGB CONC 32.5 g/dl (32.0-36.5); PLATELET COUNT, AUTOMATED 284 10^3/uL (150-450); RED BLOOD COUNT 5.01 10^6/uL (4.30-6.10); WHITE BLOOD COUNT 10.1 10^3/uL (4.0-10.0)
[2024-02-24 18:08] LABS: BLOOD UREA NITROGEN 22 MG/DL (9-23); CALCIUM LEVEL 9.4 MG/DL (8.3-10.6); CARBON DIOXIDE LEVEL 26 MMOL/L (20-31); CHLORIDE LEVEL 104 MMOL/L (98-107); CREATININE FOR GFR 0.87 MG/DL (0.70-1.30); GLOMERULAR FILTRATION RATE > 60.0 (>42); GLUCOSE, FASTING 127 MG/DL (74-106); POTASSIUM SERUM 4.2 MMOL/L (3.5-5.1); SODIUM LEVEL 138 MMOL/L (136-145); THYROID STIMULATING HORMONE 0.507 uIU/ML (0.55-4.78); THYROXINE (T4) 8.3 UG/DL (4.5-10.9)
== END ==
PROVIDERS: ATTEND Internal Medicine
DX: R53.1 Weakness (principal)

== ENCOUNTER → 2024-02-26 | Outpatient (REF) | payer MEDICARE, MEDICAID ==
[2024-02-27 11:40] LABS: APPEARANCE, URINE HAZY (CLEAR); BACTERIA, URINE AUTO NEGATIVE (NEGATIVE); BILIRUBIN, URINE AUTO NEGATIVE (NEGATIVE); BLOOD, URINE BLOOD NEGATIVE (NEGATIVE); COLOR, URINE YELLOW (YELLOW); GLUCOSE, URINE (UA) AUTO NEGATIVE (NEGATIVE); KETONE, URINE AUTO TRACE mg/dL (NEGATIVE); LEUKOCYTE ESTERASE, URINE AUTO NEGATIVE (NEGATIVE); MUCUS, URINE SMALL (NEGATIVE); NITRITE, URINE AUTO NEGATIVE (NEGATIVE); PROTEIN, URINE AUTO 1+ mg/dL (NEGATIVE); RBC, URINE AUTO 1 /HPF (0-3); SPECIFIC GRAVITY URINE AUTO 1.019 (1.002-1.035); SQUAMOUS EPITHELIAL CELL UR AU 0 /HPF (0-6); UROBILINOGEN, URINE AUTO 0.2 mg/dL (0.0-2.0); WBC, URINE AUTO 2 /HPF (0-3)
== END ==
PROVIDERS: ATTEND Internal Medicine
DX: L03.116 Cellulitis of left lower limb (principal); R41.0 Disorientation, unspecified

== ENCOUNTER → 2024-03-01 | Outpatient (REF) | payer MEDICARE, MEDICAID, SELFPAY ==
[2024-03-01 11:30] LABS: HEMATOCRIT 43.4 % (42.0-52.0); HEMOGLOBIN 14.2 g/dl (13.5-17.5); MEAN CORPUSCULAR HEMOGLOBIN 28.3 pg (27.0-33.0); MEAN CORPUSCULAR HGB CONC 32.7 g/dl (32.0-36.5); MEAN CORPUSCULAR VOLUME 86.5 fl (80.0-96.0); PLATELET COUNT, AUTOMATED 254 10^3/uL (150-450); RED BLOOD COUNT 5.02 10^6/uL (4.30-6.10); WHITE BLOOD COUNT 6.3 10^3/uL (4.0-10.0)
[2024-03-01 11:37] LABS: ERYTHROCYTE SEDIMENTATION RATE 15 mm/hr (0-20)
[2024-03-01 12:05] LABS: C REACTIVE PROTEIN QUANTITATIV < 0.40 MG/DL (<1.0)
[2024-03-01 12:07] LABS: BLOOD UREA NITROGEN 24 MG/DL (9-23); CALCIUM LEVEL 8.9 MG/DL (8.3-10.6); CARBON DIOXIDE LEVEL 26 MMOL/L (20-31); CHLORIDE LEVEL 106 MMOL/L (98-107); CREATININE FOR GFR 1.02 MG/DL (0.70-1.30); GLOMERULAR FILTRATION RATE > 60.0 (>42); GLUCOSE, FASTING 95 MG/DL (74-106); POTASSIUM SERUM 3.9 MMOL/L (3.5-5.1); SODIUM LEVEL 140 MMOL/L (136-145)
== END ==
PROVIDERS: ATTEND Internal Medicine
DX: L03.90 Cellulitis, unspecified (principal)

== ENCOUNTER → 2024-03-03 | Outpatient (REF) | payer MEDICARE, MEDICAID, SELFPAY | PROVIDERS: ATTEND Physician Assistant | DX: L03.116 Cellulitis of left lower limb (principal) ==

== ENCOUNTER → 2024-03-05 | Outpatient (REF) | payer MEDICARE, MEDICAID | PROVIDERS: ATTEND Internal Medicine | DX: L03.90 Cellulitis, unspecified (principal); I87.2 Venous insufficiency (chronic) (peripheral); L97.822 Non-pressure chronic ulcer of other part of left lower leg with fat layer exposed; Z79.899 Other long term (current) drug therapy; Z79.02 Long term (current) use of antithrombotics/antiplatelets; Z79.84 Long term (current) use of oral hypoglycemic drugs; Z91.030 Bee allergy status; Z88.2 Allergy status to sulfonamides | CPT/HCPCS: 36415; 85652; 86140; G0463 ==

== ENCOUNTER → 2024-05-10 | Outpatient (REF) | payer MEDICARE, MEDICAID | PROVIDERS: ATTEND Nurse Practitioner Adult Health | DX: R97.20 Elevated prostate specific antigen [PSA] (principal); Z12.5 Encounter for screening for malignant neoplasm of prostate | CPT/HCPCS: 36415; G0103 ==

== ENCOUNTER → 2024-05-18 | Outpatient (REF) | payer MEDICARE, MEDICAID | PROVIDERS: ATTEND Internal Medicine | DX: R30.9 Painful micturition, unspecified (principal) ==

== ENCOUNTER → 2024-05-19 | Outpatient (REF) | payer MEDICARE, MEDICAID ==
[2024-05-19 10:25] LABS: HEMATOCRIT 41.8 % (42.0-52.0); HEMOGLOBIN 13.8 g/dl (13.5-17.5); MEAN CORPUSCULAR HEMOGLOBIN 29.5 pg (27.0-33.0); MEAN CORPUSCULAR VOLUME 89.3 fl (80.0-96.0); PLATELET COUNT, AUTOMATED 238 10^3/uL (150-450); RED BLOOD COUNT 4.68 10^6/uL (4.30-6.10); WHITE BLOOD COUNT 7.4 10^3/uL (4.0-10.0)
[2024-05-19 10:53] LABS: BLOOD UREA NITROGEN 22 MG/DL (9-23); CALCIUM LEVEL 8.9 MG/DL (8.3-10.6); CARBON DIOXIDE LEVEL 27 MMOL/L (20-31); CHLORIDE LEVEL 105 MMOL/L (98-107); CREATININE FOR GFR 0.91 MG/DL (0.70-1.30); GLOMERULAR FILTRATION RATE > 60.0 (>42); GLUCOSE, FASTING 125 MG/DL (74-106); POTASSIUM SERUM 3.9 MMOL/L (3.5-5.1); SODIUM LEVEL 138 MMOL/L (136-145)
== END ==
PROVIDERS: ATTEND Internal Medicine
DX: I10 Essential (primary) hypertension (principal)

== ENCOUNTER → 2024-07-15 | Outpatient (REF) | payer MEDICARE, MEDICAID ==
[2024-07-15 13:26] LABS: APPEARANCE, URINE CLEAR (CLEAR); BACTERIA, URINE AUTO NEGATIVE (NEGATIVE); BILIRUBIN, URINE AUTO NEGATIVE (NEGATIVE); BLOOD, URINE BLOOD NEGATIVE (NEGATIVE); COLOR, URINE YELLOW (YELLOW); GLUCOSE, URINE (UA) AUTO NEGATIVE (NEGATIVE); KETONE, URINE AUTO TRACE mg/dL (NEGATIVE); LEUKOCYTE ESTERASE, URINE AUTO NEGATIVE (NEGATIVE); NITRITE, URINE AUTO NEGATIVE (NEGATIVE); PROTEIN, URINE AUTO NEGATIVE (NEGATIVE); RBC, URINE AUTO 0 /HPF (0-3); SPECIFIC GRAVITY URINE AUTO 1.018 (1.002-1.035); SQUAMOUS EPITHELIAL CELL UR AU 0 /HPF (0-6); WBC, URINE AUTO 0 /HPF (0-3)
== END ==
LOC: M SMT 13:07
PROVIDERS: ATTEND Physician Assistant
DX: R35.0 Frequency of micturition (principal)

== ENCOUNTER → 2024-08-18 | Outpatient (REF) | payer MEDICARE, MEDICAID ==
[2024-08-18 11:40] LABS: ALBUMIN 3.5 G/DL (3.2-5.2); ALKALINE PHOSPHATASE 51 U/L (40-129); ALT/SGPT < 9 U/L (7.0-40); AST/SGOT 8 U/L (<34); BILIRUBIN,DIRECT 0.3 MG/DL (<0.4); BILIRUBIN,TOTAL 0.8 MG/DL (0.3-1.2); THYROID STIMULATING HORMONE 0.696 uIU/ML (0.55-4.78); TOTAL PROTEIN 6.8 G/DL (5.7-8.2)
[2024-08-18 11:41] LABS: FREE T3 3.4 PG/ML (2.3-4.2); VITAMIN B12 LEVEL 356 PG/ML (211-911)
[2024-08-18 12:58] LABS: THYROXINE (T4) 6.3 UG/DL (4.5-10.9)
== END ==
PROVIDERS: ATTEND Internal Medicine
DX: I10 Essential (primary) hypertension (principal); Z79.899 Other long term (current) drug therapy

== ENCOUNTER → 2024-09-27 | Outpatient (REF) | payer MEDICARE, MEDICAID ==
[2024-09-27 10:27] LABS: HEMATOCRIT 41.6 % (42.0-52.0); HEMOGLOBIN 13.7 g/dl (13.5-17.5); MEAN CORPUSCULAR HEMOGLOBIN 29.2 pg (27.0-33.0); MEAN CORPUSCULAR HGB CONC 32.9 g/dl (32.0-36.5); MEAN CORPUSCULAR VOLUME 88.7 fl (80.0-96.0); PLATELET COUNT, AUTOMATED 248 10^3/uL (150-450); RED BLOOD COUNT 4.69 10^6/uL (4.30-6.10); WHITE BLOOD COUNT 7.3 10^3/uL (4.0-10.0)
[2024-09-27 10:58] LABS: BLOOD UREA NITROGEN 29 MG/DL (9-23); CALCIUM LEVEL 8.8 MG/DL (8.3-10.6); CARBON DIOXIDE LEVEL 26 MMOL/L (20-31); CHLORIDE LEVEL 109 MMOL/L (98-107); CREATININE FOR GFR 1.05 MG/DL (0.70-1.30); GLOMERULAR FILTRATION RATE > 60.0 (>42); GLUCOSE, FASTING 91 MG/DL (74-106); POTASSIUM SERUM 4.4 MMOL/L (3.5-5.1); SODIUM LEVEL 145 MMOL/L (136-145)
== END ==
PROVIDERS: ATTEND Internal Medicine
DX: I10 Essential (primary) hypertension (principal)

== ENCOUNTER → 2024-11-12 | Outpatient (REF) | payer MEDICARE, MEDICAID ==
[2024-11-12 08:20] LABS: BLOOD UREA NITROGEN 28 MG/DL (9-23); CALCIUM LEVEL 8.9 MG/DL (8.3-10.6); CARBON DIOXIDE LEVEL 26 MMOL/L (20-31); CHLORIDE LEVEL 104 MMOL/L (98-107); CREATININE FOR GFR 0.95 MG/DL (0.70-1.30); GLOMERULAR FILTRATION RATE > 60.0 (>42); GLUCOSE, FASTING 100 MG/DL (74-106); POTASSIUM SERUM 4.5 MMOL/L (3.5-5.1); SODIUM LEVEL 140 MMOL/L (136-145)
== END ==
PROVIDERS: ATTEND Internal Medicine
DX: I10 Essential (primary) hypertension (principal)

== ENCOUNTER → 2024-12-13 | Outpatient (REF) | payer MEDICARE, MEDICAID ==
[2024-12-13 07:49] LABS: HEMOGLOBIN A1c 5.6 % (4.0-6.0)
[2024-12-13 07:51] LABS: BLOOD UREA NITROGEN 29 MG/DL (9-23); CALCIUM LEVEL 8.3 MG/DL (8.3-10.6); CARBON DIOXIDE LEVEL 23 MMOL/L (20-31); CHLORIDE LEVEL 105 MMOL/L (98-107); CHOLESTEROL LEVEL 110 MG/DL (<200); CHOLESTEROL RISK RATIO 3.18 (<5); GLOMERULAR FILTRATION RATE > 60.0 (>42); GLUCOSE, FASTING 202 MG/DL (74-106); HDL CHOLESTEROL 34.5 MG/DL (>40); LDL CHOLESTEROL 53.7 MG/DL (<100); NON-HDL-C 75.5 MG/DL; POTASSIUM SERUM 3.9 MMOL/L (3.5-5.1); SODIUM LEVEL 140 MMOL/L (136-145); TRIGLYCERIDES LEVEL 109 MG/DL (<150)
[2024-12-13 07:54] LABS: TOTAL 25(OH) VITAMIN D 53.7 NG/ML (20.0-100.0)
== END ==
PROVIDERS: ATTEND Physician Assistant
DX: I10 Essential (primary) hypertension (principal); E55.9 Vitamin D deficiency, unspecified; Z79.899 Other long term (current) drug therapy

== ENCOUNTER → 2025-02-14 | Outpatient (REF) | payer MEDICARE, MEDICAID ==
[2025-02-14 09:03] LABS: ALBUMIN 3.5 G/DL (3.2-5.2); ALKALINE PHOSPHATASE 50 U/L (40-129); ALT/SGPT < 9 U/L (7.0-40); AST/SGOT 13 U/L (<34); BILIRUBIN,DIRECT 0.2 MG/DL (<0.4); BILIRUBIN,TOTAL 0.7 MG/DL (0.3-1.2); TOTAL PROTEIN 6.4 G/DL (5.7-8.2)
[2025-02-14 09:06] LABS: HEMOGLOBIN A1c 6.3 % (4.0-6.0); THYROID STIMULATING HORMONE 0.868 uIU/ML (0.55-4.78); THYROXINE (T4) 9.2 UG/DL (4.5-10.9)
== END ==
PROVIDERS: ATTEND Internal Medicine
DX: E11.9 Type 2 diabetes mellitus without complications (principal)

== ENCOUNTER → 2025-02-15 | Outpatient (REF) | payer MEDICARE, MEDICAID | PROVIDERS: ATTEND Physician Assistant | DX: I1A.0 Resistant hypertension (principal); I10 Essential (primary) hypertension ==

== ENCOUNTER → 2025-04-04 | Outpatient (CLI) | payer MEDICARE, MEDICAID | LOC: M RAD 10:56 | PROVIDERS: ATTEND Physician Assistant | DX: I87.2 Venous insufficiency (chronic) (peripheral) (principal); L97.822 Non-pressure chronic ulcer of other part of left lower leg with fat layer exposed; I82.812 Embolism and thrombosis of superficial veins of left lower extremity ==

== ENCOUNTER → 2025-04-20 | Outpatient (POV) | payer MEDICARE, MEDICAID ==
[~2025-04-20] VITALS: Ht 193 cm; Wt 102.3 kg
[~2025-04-20] MED LIST: ACET-1515 PO; ATOR1TAB21 PO; CARB10TA6 PO; CARV12.5 PO; CHLO125TA PO; ENSULIQ51 PO; FEXO-63 PO; FINA5TAB2 PO; LISI40TA10 PO; METF-839 PO; NOXI1TAB PO; RASA1TAB PO; SPIR-10 PO; TAMS-18 PO; XARE20TA PO
[2025-04-20 09:05] VITALS: BP 118/60; O2SAT 95
== END ==
LOC: M IRPOV 08:48
PROVIDERS: ATTEND Radiology Diagnostic Radiology
DX: I83.028 Varicose veins of left lower extremity with ulcer other part of lower leg (principal); L97.822 Non-pressure chronic ulcer of other part of left lower leg with fat layer exposed; I87.2 Venous insufficiency (chronic) (peripheral); Z79.899 Other long term (current) drug therapy; Z79.84 Long term (current) use of oral hypoglycemic drugs; Z80.1 Family history of malignant neoplasm of trachea, bronchus and lung; Z87.820 Personal history of traumatic brain injury; Z87.891 Personal history of nicotine dependence

== ENCOUNTER → 2025-04-21 | Outpatient (CLI) | payer MEDICARE, MEDICAID ==
[~2025-04-21] MED LIST changes: -ACET-1515 PO; +ACET650T15 PO
== END ==
LOC: M CARPUL 14:28
PROVIDERS: ATTEND Nurse Practitioner Family
DX: I10 Essential (primary) hypertension (principal)

== ENCOUNTER → 2025-04-25 | Outpatient (REF) | payer MEDICARE, MEDICAID, OTHER ==
[~2025-04-25] MED LIST changes: +ACET-1515 PO; -ACET650T15 PO
[2025-04-25 11:20] LABS: CALCIUM LEVEL 9.2 MG/DL (8.3-10.6); CARBON DIOXIDE LEVEL 25.0 MMOL/L (20-31); CHLORIDE LEVEL 103.0 MMOL/L (98-107); CREATININE FOR GFR 1.22 MG/DL (0.70-1.30); GLOMERULAR FILTRATION RATE 63.0 (>42); MAGNESIUM LEVEL 2.1 MG/DL (1.8-2.4); PHOSPHORUS LEVEL 3.9 MG/DL (2.4-5.1); POTASSIUM SERUM 4.8 MMOL/L (3.5-5.1); SODIUM LEVEL 139.0 MMOL/L (136-145)
== END ==
PROVIDERS: ATTEND Internal Medicine
DX: I10 Essential (primary) hypertension (principal)

== ENCOUNTER → 2025-05-16 | Outpatient (REF) | payer MEDICARE, MEDICAID ==
[2025-05-16 11:38] LABS: PLATELET COUNT, AUTOMATED 301 10^3/uL (150-450)
[2025-05-16 12:16] LABS: CALCIUM LEVEL 9.6 MG/DL (8.3-10.6); CARBON DIOXIDE LEVEL 24.0 MMOL/L (20-31); CHLORIDE LEVEL 105.0 MMOL/L (98-107); CREATININE FOR GFR 1.46 MG/DL (0.70-1.30); GLOMERULAR FILTRATION RATE 50.8 (>42); POTASSIUM SERUM 5.4 MMOL/L (3.5-5.1); SODIUM LEVEL 140.0 MMOL/L (136-145)
== END ==
PROVIDERS: ATTEND Internal Medicine
DX: I10 Essential (primary) hypertension (principal)

== ENCOUNTER → 2025-05-20 | Outpatient (REF) | payer MEDICARE, MEDICAID ==
[2025-05-20 10:04] LABS: CALCIUM LEVEL 9.5 MG/DL (8.3-10.6); CARBON DIOXIDE LEVEL 23.0 MMOL/L (20-31); CHLORIDE LEVEL 105.0 MMOL/L (98-107); CREATININE FOR GFR 1.22 MG/DL (0.70-1.30); GLOMERULAR FILTRATION RATE 63.0 (>42); POTASSIUM SERUM 5.0 MMOL/L (3.5-5.1); SODIUM LEVEL 139.0 MMOL/L (136-145)
== END ==
PROVIDERS: ATTEND Internal Medicine
DX: N18.9 Chronic kidney disease, unspecified (principal)

== ENCOUNTER → 2025-05-27 | Outpatient (REF) | payer MEDICARE, MEDICAID ==
[2025-05-27 10:38] LABS: CALCIUM LEVEL 9.0 MG/DL (8.3-10.6); CARBON DIOXIDE LEVEL 26.0 MMOL/L (20-31); CHLORIDE LEVEL 102.0 MMOL/L (98-107); CREATININE FOR GFR 1.44 MG/DL (0.70-1.30); GLOMERULAR FILTRATION RATE 51.6 (>42); POTASSIUM SERUM 5.6 MMOL/L (3.5-5.1); SODIUM LEVEL 137.0 MMOL/L (136-145)
== END ==
PROVIDERS: ATTEND Internal Medicine
DX: N18.9 Chronic kidney disease, unspecified (principal)

== ENCOUNTER → 2025-05-31 | Outpatient (REF) | payer MEDICARE, MEDICAID, OTHER ==
[2025-05-31 15:20] LABS: CALCIUM LEVEL 9.3 MG/DL (8.3-10.6); CARBON DIOXIDE LEVEL 24.0 MMOL/L (20-31); CHLORIDE LEVEL 104.0 MMOL/L (98-107); CREATININE FOR GFR 1.43 MG/DL (0.70-1.30); GLOMERULAR FILTRATION RATE 52.1 (>42); POTASSIUM SERUM 4.9 MMOL/L (3.5-5.1); SODIUM LEVEL 141.0 MMOL/L (136-145)
== END ==
PROVIDERS: ATTEND Internal Medicine
DX: E87.5 Hyperkalemia (principal)

== ENCOUNTER → 2025-06-06 | Outpatient (REF) | payer MEDICARE, MEDICAID, OTHER ==
[2025-06-06 12:21] LABS: CALCIUM LEVEL 8.9 MG/DL (8.3-10.6); CARBON DIOXIDE LEVEL 26.0 MMOL/L (20-31); CHLORIDE LEVEL 103.0 MMOL/L (98-107); CREATININE FOR GFR 1.32 MG/DL (0.70-1.30); GLOMERULAR FILTRATION RATE 57.3 (>42); POTASSIUM SERUM 4.6 MMOL/L (3.5-5.1); SODIUM LEVEL 139.0 MMOL/L (136-145)
== END ==
PROVIDERS: ATTEND Internal Medicine
DX: E87.5 Hyperkalemia (principal)

== ENCOUNTER → 2025-06-15 | Outpatient (REF) | payer MEDICARE, MEDICAID | PROVIDERS: ATTEND Internal Medicine | DX: Z01.818 Encounter for other preprocedural examination (principal) ==

== ENCOUNTER → 2025-06-17 | Outpatient (CLI) | payer MEDICARE, MEDICAID ==
[~2025-06-17] MED LIST changes: +IBUPROFEN 600 MG TAB PO PRN; +NS (Normal Saline) 0.9% 1,000 ML IV SCH; +SODIUM CHLORIDE 0.9% 1000 ML XX SCH
[2025-06-17 08:00] VITALS: TEMP 98.8
[2025-06-17] MEDS: LIDOCAINE 1% MDV 20 ML VIAL SC SCH (10:25)
[2025-06-17] MEDS: SODIUM TETRADECYL SULFATE (1%) 20MG/2ML VIAL (SOTRADECOL) IV SCH (10:25)
[2025-06-17] MEDS: MIDAZOLAM INJ 2 MG/2 ML VIAL IV PRN (10:26)
[2025-06-17 11:15] VITALS: BP 171/79; O2SAT 98
== END ==
LOC: M IRPRO 07:55
PROVIDERS: ATTEND Radiology Diagnostic Radiology
DX: I83.028 Varicose veins of left lower extremity with ulcer other part of lower leg (principal); L97.822 Non-pressure chronic ulcer of other part of left lower leg with fat layer exposed; I87.2 Venous insufficiency (chronic) (peripheral)
CPT/HCPCS: 36470; 36482; 99152; 99153; J2250; J3010

== ENCOUNTER → 2025-06-20 | Outpatient (CLI) | payer MEDICARE, MEDICAID ==
[~2025-06-20] MED LIST changes: -IBUPROFEN 600 MG TAB PO PRN; -NS (Normal Saline) 0.9% 1,000 ML IV SCH; -SODIUM CHLORIDE 0.9% 1000 ML XX SCH
== END ==
LOC: M RAD 08:10
PROVIDERS: ATTEND Radiology Diagnostic Radiology
DX: I83.023 Varicose veins of left lower extremity with ulcer of ankle (principal); L97.329 Non-pressure chronic ulcer of left ankle with unspecified severity

== ENCOUNTER → 2025-07-04 | Outpatient (POV) | payer MEDICARE, MEDICAID ==
[~2025-07-04] VITALS: Ht 193 cm; Wt 102.3 kg
[2025-07-04 09:03] VITALS: BP 112/60; O2SAT 95
== END ==
LOC: M IRPOV 08:48
PROVIDERS: ATTEND Registered Nurse School
DX: Z48.812 Encounter for surgical aftercare following surgery on the circulatory system (principal); L97.329 Non-pressure chronic ulcer of left ankle with unspecified severity; I83.023 Varicose veins of left lower extremity with ulcer of ankle; Z91.030 Bee allergy status; Z91.040 Latex allergy status; Z88.5 Allergy status to narcotic agent; Z88.1 Allergy status to other antibiotic agents; Z88.8 Allergy status to other drugs, medicaments and biological substances

== ENCOUNTER → 2025-07-18 | Outpatient (CLI) | payer MEDICARE, MEDICAID | LOC: M RAD 09:51 | PROVIDERS: ATTEND Radiology Diagnostic Radiology | DX: I87.2 Venous insufficiency (chronic) (peripheral) (principal); I83.892 Varicose veins of left lower extremity with other complications; I83.002 Varicose veins of unspecified lower extremity with ulcer of calf; L97.209 Non-pressure chronic ulcer of unspecified calf with unspecified severity; I82.812 Embolism and thrombosis of superficial veins of left lower extremity ==

== ENCOUNTER → 2025-07-20 | Outpatient (POV) | payer MEDICARE, MEDICAID ==
[~2025-07-20] VITALS: Ht 190.5 cm; Wt 102.3 kg
[2025-07-20 13:09] VITALS: BP 116/59; O2SAT 98
== END ==
LOC: M IRPOV 12:25
PROVIDERS: ATTEND Registered Nurse School
DX: Z48.812 Encounter for surgical aftercare following surgery on the circulatory system (principal); I83.021 Varicose veins of left lower extremity with ulcer of thigh; L97.329 Non-pressure chronic ulcer of left ankle with unspecified severity; Z91.030 Bee allergy status; Z91.040 Latex allergy status; Z88.1 Allergy status to other antibiotic agents; Z88.5 Allergy status to narcotic agent; Z88.8 Allergy status to other drugs, medicaments and biological substances

== ENCOUNTER → 2025-08-10 | Outpatient (REF) | payer MEDICARE, MEDICAID, OTHER ==
[2025-08-10 11:27] LABS: ALT/SGPT 10.0 U/L (7.0-40); AST/SGOT 17.0 U/L (<34); THYROXINE (T4) 6.9 UG/DL (4.5-10.9)
[2025-08-10 11:31] LABS: ESTIMATED AVERAGE GLUCOSE 143.0 MG/DL (60-110)
== END ==
PROVIDERS: ATTEND Internal Medicine
DX: E78.5 Hyperlipidemia, unspecified (principal); Z12.5 Encounter for screening for malignant neoplasm of prostate; Z79.899 Other long term (current) drug therapy
CPT/HCPCS: 36415; 80076; 83036; 84436; 84443; 84482; G0103

== ENCOUNTER → 2025-08-15 | Outpatient (REF) | payer MEDICARE, MEDICAID | PROVIDERS: ATTEND Internal Medicine | DX: I73.9 Peripheral vascular disease, unspecified (principal); Z53.8 Procedure and treatment not carried out for other reasons ==

== ENCOUNTER → 2025-08-15 | Outpatient (CLI) | payer MEDICARE, MEDICAID ==
[~2025-08-15] MED LIST changes: +IBUPROFEN 600 MG TAB PO PRN; +MIDAZOLAM INJ 2 MG/2 ML VIAL IV PRN
[2025-08-15 07:10] VITALS: TEMP 97.3
[2025-08-15] MEDS: D5W 1000 ML XX SCH (07:25)
[2025-08-15] MEDS: SODIUM TETRADECYL SULFATE (1%) 20MG/2ML VIAL (SOTRADECOL) IV SCH (07:25)
[2025-08-15] MEDS: NS (Normal Saline) 0.9% 1,000 ML IV SCH (07:25)
[2025-08-15 07:47] LABS: PLATELET COUNT, AUTOMATED 232 10^3/uL (150-450)
[2025-08-15 08:12] LABS: CALCIUM LEVEL 8.6 MG/DL (8.3-10.6); CARBON DIOXIDE LEVEL 25.0 MMOL/L (20-31); CHLORIDE LEVEL 104.0 MMOL/L (98-107); CREATININE FOR GFR 1.17 MG/DL (0.70-1.30); GLOMERULAR FILTRATION RATE 66.2 (>42); POTASSIUM SERUM 4.1 MMOL/L (3.5-5.1); SODIUM LEVEL 138.0 MMOL/L (136-145)
[2025-08-15] MEDS: LIDOCAINE 1% MDV 20 ML VIAL SC SCH (09:37)
[2025-08-15 10:30] VITALS: BP 136/62; O2SAT 96
== END ==
LOC: M IRPRO 06:55
PROVIDERS: ATTEND Registered Nurse School
DX: I83.028 Varicose veins of left lower extremity with ulcer other part of lower leg (principal); I87.2 Venous insufficiency (chronic) (peripheral)
CPT/HCPCS: 36482; 36483; 80048; 85027; C1769

== ENCOUNTER → 2025-08-17 | Outpatient (CLI) | payer MEDICARE, MEDICAID ==
[~2025-08-17] MED LIST changes: -IBUPROFEN 600 MG TAB PO PRN; -MIDAZOLAM INJ 2 MG/2 ML VIAL IV PRN
== END ==
LOC: M RAD 07:42
PROVIDERS: ATTEND Radiology Diagnostic Radiology
DX: I70.248 Atherosclerosis of native arteries of left leg with ulceration of other part of lower leg (principal); I83.12 Varicose veins of left lower extremity with inflammation; I83.228 Varicose veins of left lower extremity with both ulcer of other part of lower extremity and inflammation; L97.829 Non-pressure chronic ulcer of other part of left lower leg with unspecified severity

== ENCOUNTER → 2025-08-29 | Outpatient (POV) | payer MEDICARE, MEDICAID ==
[~2025-08-29] MED LIST changes: +FINA-37 PO; -FINA5TAB2 PO
== END ==
LOC: M IRPOV 10:00
PROVIDERS: ATTEND Registered Nurse School
DX: I83.029 Varicose veins of left lower extremity with ulcer of unspecified site (principal); L97.929 Non-pressure chronic ulcer of unspecified part of left lower leg with unspecified severity; Z80.1 Family history of malignant neoplasm of trachea, bronchus and lung; Z83.6 Family history of other diseases of the respiratory system; Z87.891 Personal history of nicotine dependence; Z88.2 Allergy status to sulfonamides; Z88.8 Allergy status to other drugs, medicaments and biological substances; Z91.030 Bee allergy status

== ENCOUNTER → 2025-09-14 | Outpatient (CLI) | payer MEDICARE, MEDICAID ==
[~2025-09-14] MED LIST changes: -FINA-37 PO; +FINA5TAB2 PO
== END ==
LOC: M RAD 15:26
PROVIDERS: ATTEND Radiology Diagnostic Radiology
DX: I87.2 Venous insufficiency (chronic) (peripheral) (principal); I83.028 Varicose veins of left lower extremity with ulcer other part of lower leg; L97.829 Non-pressure chronic ulcer of other part of left lower leg with unspecified severity

== ENCOUNTER → 2025-09-26 | Outpatient (REF) | payer MEDICARE, MEDICAID | PROVIDERS: ATTEND Nurse Practitioner Family | DX: R05.9 Cough, unspecified (principal) ==